=== PATIENT | female | born 1980 | race Caucasian/White ===

== ENCOUNTER 2018-12-23 22:30 | Emergency (ER) | payer BC, OTHER ==
[2018-12-23 22:48] VITALS: BP 123/70
[2018-12-24] MEDS ORDERED: Sulfamethoxazole/Trimethoprim 800-160 MG Tab PO ONE (00:55)
--- NOTE | 2018-12-24 01:05 | EDM.PDOC ---
ED HPI GENERAL MEDICAL PROBLEM - General Chief Complaint: Genitourinary Problem Stated Complaint: UTI Time Seen by Provider: 12/24/18 00:40 Source of Information: Reports: Patient, RN Notes Reviewed History Limitations: Reports: No Limitations - History of Present Illness INITIAL COMMENTS - FREE TEXT/NARRATIVE: The patient states that she developed dysuria and urinary frequency around 19: 00. She then developed gross hematuria around 21:00. No recent fever. No recent flank or lower back pain. No abdominal or pelvic pain. No recent nausea or vomiting. The patient states that her symptoms are similar to when she had a UTI previously - she states that she has only had one UTI in the past. The patient states that she took some ibuprofen and cranberry tablets prior to coming to the ED. The patient's LMP was 11/22/2018. She states that she recently had a miscarriage. The patient does not have a PCP. Her [facility] is Dr. Varghese Gordon. 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, , Spontaneous (x 4), Other (See Below) (G7 T3 L3) - Past Surgical History Female Surgical History: Reports: Section (x 1), Endometrial Ablation Dermatological Surgical History: Reports: Other (See Below) (Noncancerous tumor removed off left shoulder at 10 years old) Social & Family History - Family History Family Medical History: Noncontributory - Tobacco Use Smoking Status *Q: Never Smoker - Caffeine Use Caffeine Use: Reports: None - Alcohol Use Alcohol Use History: No - Recreational Drug Use Recreational Drug Use: No - Living Situation & Occupation Living situation: Reports: , with Spouse, with Family (3 kids) Occupation: Unemployed ED ROS GENERAL - Review of Systems Review Of Systems: ROS reveals no pertinent complaints other than HPI. ED EXAM, RENAL/ - Physical Exam Exam: See Below Exam Limited By: No Limitations General Appearance: Alert, WD/WN, No Apparent Distress Eye Exam: Bilateral Eye: EOMI, Normal Inspection Ears: Normal External Exam, Hearing Grossly Normal Nose: Normal Inspection Throat/Mouth: Normal Inspection, Normal Lips, Normal Voice, No Airway Compromise Head: Atraumatic, Normocephalic Neck: Normal Inspection, Full Range of Motion Respiratory/Chest: No Respiratory Distress, Lungs Clear, Normal Breath Sounds, No Accessory Muscle Use Cardiovascular: Normal Peripheral Pulses, Regular Rate, Rhythm, No Edema, No Gallop, No JVD, No Murmur, No Rub GI/Abdominal: Normal Bowel Sounds, Soft, Non-Tender (including suprapubically), No Organomegaly, No Distention, No Abnormal Bruit, No Mass (Female) Exam: Deferred Rectal (Female) Exam: Deferred Back Exam: Normal Inspection, Full Range of Motion. No: CVA Tenderness (L), CVA Tenderness (R) Extremities: Normal Inspection, Normal Range of Motion, No Pedal Edema, Normal Capillary Refill Neurological: Alert, Oriented, Normal Cognition, No Motor/Sensory Deficits Psychiatric: Normal Affect Skin Exam: Warm, Dry, Intact, Normal Color, No Rash Course - Vital Signs Last Recorded V/S: Last Vital Signs Temp 36.5 C 12/23/18 22:44 Pulse 85 12/23/18 22:44 Resp 18 12/23/18 22:44 BP 123/70 12/23/18 22:44 Pulse Ox 99 12/23/18 22:44 - Orders/Labs/Meds Labs: Laboratory Tests 12/23/18 Range/Units 22:53 Urine Color Red H (Yellow) Urine Appearance Turbid H (Clear) Urine pH 6.0 (5.0-8.0) Ur Specific [place] > or = 1.030 (1.005-1.030) Urine Protein 3+ H (Negative) Urine Glucose (UA) Negative (Negative) Urine Ketones 1+ H (Negative) Urine Occult Blood 3+ H (Negative) Urine Nitrite Positive H (Negative) Urine Bilirubin 2+ H (Negative) Urine Urobilinogen 1.0 (0.2-1.0) Ur Leukocyte Esterase 3+ H (Negative) Urine RBC Too numerous to cnt H (0-5) /hpf Urine WBC 5-10 H (0-5) /hpf Ur Epithelial Cells 0-5 (0-5) /hpf Urine Bacteria Few (FEW) /hpf Urine Mucus Not seen (FEW) /hpf Meds: Medications Discontinued Medications Generic Name Dose Route Start Last Admin Trade Name Abdullahi PRN Reason Stop Dose Admin Trimethoprim/Sulfamethoxazole 1 tab 12/24/18 00:55 12/24/18 01:03 Septra Ds PO 12/24/18 00:56 1 tab ONETIME ONE Administration - Re-Assessments/Exams Free Text/Narrative Re-Assessment/Exam: 12/24/18 00:56 The patient's urinalysis is consistent with a UTI. A urine culture has been ordered, and I will start the patient on Bactrim, and prescribe a five-day course. She may also take [id number] Azo. I will refer her to the clinic to follow-up on her urine culture results in 3 days. Departure - Departure Time of Disposition: 00:58 Disposition: Home, Self-Care 01 Condition: Good Clinical Impression: UTI (urinary tract infection) - Discharge Information *PRESCRIPTION DRUG MONITORING PROGRAM REVIEWED*: Not Applicable *COPY OF PRESCRIPTION DRUG MONITORING REPORT IN PATIENT [place]: Not Applicable Prescriptions: Sulfamethoxazole/Trimethoprim [Bactrim Ds Tablet] 1 tab PO Q12H #10 tablet Instructions: Urinary Tract Infection, Adult, [id number] Referrals: Shaun Lancaster PA [Physician Linoleum Printer] - Varghese Gordon MD [Resident] - Forms: ED Department Discharge Additional Instructions: You were seen in the emergency room for painful urination with urinary urgency and visible blood. Workup in the ER included a urinalysis, which returned consistent with a urinary tract infection. A sample of your urine has been sent for culture. You have been started on the antibiotic Bactrim DS. A prescription for Bactrim DS has been sent to the [place] pharmacy, located at [address] in [place]. Take one tablet of Bactrim DS every 12 hours, starting later this morning, 12/24/2018, as prescribed. Finish the entire prescription unless told otherwise by a doctor. In addition to Bactrim DS, you may also take [id number] Azo, a total of 6 doses - either 3 doses a day for 2 days, or 2 doses a day for 3 days. Azo will turn your urine orange. Stay adequately hydrated. It does not really matter what type of fluid you drink. Follow-up with KALYN Soni, or one of the other providers in the clinic on Sunday morning, 12/27/2018, to check on the urine culture results, to make sure that you are on the correct antibiotic. If any other problems, please do not hesitate to return to the ER.
== END 2018-12-24 01:10 | disposition home or self-care (01) ==
LOC: JD.ED 22:30
DX: N39.0 Urinary tract infection, site not specified (principal); Z79.82 Long term (current) use of aspirin; Z98.890 Other specified postprocedural states
CPT/HCPCS: 81001; 87086; 87088; 87186; 99283; A9270

== ENCOUNTER 2019-07-05 08:43 | Day surgery (SDC) | payer BC, OTHER ==
[2019-07-05 08:56] VITALS: PULSE 72
[2019-07-05] MEDS ORDERED: Sodium Chloride 0.9% 1,000 ML IV SCH (09:00)
--- NOTE | 2019-07-05 09:06 | EDM.PDOC ---
ED HPI GENERAL MEDICAL PROBLEM - General Chief Complaint: MINK RANCHER Problem Stated Complaint: VAGINAL BLEEDING AFTER MISCARRIAGE IN MAY Time Seen by Provider: 07/05/19 08:56 Source of Information: Reports: Patient History Limitations: Reports: No Limitations - History of Present Illness INITIAL COMMENTS - FREE TEXT/NARRATIVE: She was identified to have suffered a demise at around 20 weeks gestation. On June 13 she was brought into the hospital and induced labor with delivery of a 20 week fetus. Was felt at that time that all of the proximal conception were also delivered. An ultrasound was done the same day of delivery and suggested no obvious retained products of conception. Since that time however the patient has been bleeding spotting per vagina and passed a multitude of fairly large clots particular this morning. Associated lower abdominal cramping pain. She did do a home test which was negative. She is mildly orthostatic in the ED. She is also mildly pallid. Patient feels by temperature that she ovulated about a week ago. Likely this represents her normal menstrual cycle as the clots are fairly large for a menstrual cycle. Patient is 8 para 3. Onset: Gradual (Has been spotting and passing clots per vagina off and on since June 13.) Duration: Day(s):, Intermittent Location: Reports: Other (Passing clots and perhaps some tissue per vagina this morning. 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: Other (see below) - Related Data Allergies Allergy/AdvReac Type Severity Reaction Status Date / Time No Known Allergies Allergy Verified 07/05/19 08:56 Home Meds: Home Meds Vit Calc,Iron,Folic [ Vitamins] 1 tab PO DAILY 05/21/16 [ History] L.acidoph,Paracasei, B.lactis [Probiotic] 1 cap PO DAILY 07/05/19 [History] Ubidecarenone [Co Q-10] 10 mg PO DAILY 07/05/19 [History] Past Medical History MINK RANCHER History: Reports: Endometriosis, , Spontaneous (x 4), Other (See Below) (G7 T3 L3) : 8 Para: 3 (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 Denies: Fever, Chills HEENT: Reports: No Symptoms Respiratory: Reports: No Symptoms Cardiovascular: Reports: No Symptoms Endocrine: Reports: No Symptoms GI/Abdominal: Reports: No Symptoms : Reports: Other (Clotting and bleeding heavily at times with clots since June 13 when she delivered a 20 week fetus.) Musculoskeletal: Reports: No Symptoms Skin: Reports: No Symptoms Neurological: Reports: No Symptoms Psychiatric: Reports: No Symptoms Hematologic/Lymphatic: Reports: Anemia Immunologic: Reports: No Symptoms ED EXAM - Physical Exam Exam: See Below Exam Limited By: No Limitations General Appearance: Alert, WD/WN, No Apparent Distress, Other (Vital signs show temperature 36.3. Pulse is 72 and sinus respiratory 16 BP is 107/79 pulse ox 100 %) Eye Exam: Bilateral Eye: Normal Inspection, PERRL (Mild left pleural pallor.) Throat/Mouth: Normal Inspection, Normal Lips, Normal Teeth, Normal Oropharynx Head: Atraumatic, Normocephalic Neck: Normal Inspection, Supple, Non-Tender, Full Range of Motion. No: Lymphadenopathy (L), Lymphadenopathy (R) Respiratory/Chest: No Respiratory Distress, Lungs Clear, Normal Breath Sounds, No Accessory Muscle Use Cardiovascular: Normal Peripheral Pulses, Regular Rate, Rhythm, No Edema, No Gallop, No Murmur GI/Abdominal Exam: Normal Bowel Sounds, Soft, Non-Tender, No Organomegaly, No Abnormal Bruit, No Mass, Pelvis Stable, Other ( scar Pfannenstiel) (Female) Exam: Vaginal Bleeding, Other (Uterus is normal in size i.e. 4 weeks in size. Cervix is closed. Some masses appreciated.Blood on gloved fingers.). No: Normal External Exam, Adnexal Mass (L), Adnexal Mass (R), Cervical Dilatation, Products of Conception, Tissue Present in Cervix/Vagina, Uterine Tenderness Back Exam: Normal Inspection, Full Range of Motion. No: CVA Tenderness (L), CVA Tenderness (R) Extremities: Normal Inspection, Normal Range of Motion, Non-Tender, No Pedal Edema Neurological: Alert, Oriented, CN II-XII Intact, Normal Cognition, Normal Gait Psychiatric: Normal Affect, Normal Mood Skin Exam: Warm, Dry, Intact, Pallor (Mildly pallid.) Course - Vital Signs Last Recorded V/S: Last Vital Signs Temp 36.3 C 07/05/19 08:52 Pulse 72 07/05/19 08:52 Resp 16 07/05/19 08:52 BP 107/79 07/05/19 08:52 Pulse Ox 100 07/05/19 08:52 Orthostatic Blood Pressure [ 124/88 Standing] Orthostatic Blood Pressure [ 129/95 Sitting] Orthostatic Blood Pressure [ 112/64 Supine] - Orders/Labs/Meds Orders: Active Orders 24 hr Category Date Time Status Orthostatic Vital Signs [RC] ASDIRECTED Care 07/05/19 08:55 Active PATIENT RETYPE [BBK] Routine Lab 07/05/19 09:51 Ordered Oxytocin/Lactated Ringers [Pitocin in LR 20 Units/1,000 Med 07/05/19 11:00 Active ML] 20 unit in 1,000 ml IV TITRATE Medication Orders Oxytocin/Lactated Ringer's (Pitocin In Lr 20 Units/1,000 Ml) 20 unit in 1,000 mls @ 125 mls/hr IV TITRATE DALE; Protocol Last Admin: 07/05/19 11:09 Dose: 125 mls/hr Labs: Laboratory Tests 07/05/19 07/05/19 07/05/19 Range/Units 09:10 09:20 09:20 WBC 7.20 (3.98-10.04) K/mm3 RBC 4.80 (3.98-5.22) M/mm3 Hgb 13.5 (11.2-15.7) gm/dl Hct 40.3 (34.1-44.9) % MCV 84.0 (79.4-94.8) fl MCH 28.1 (25.6-32.2) pg MCHC 33.5 (32.2-35.5) g/dl RDW Std Deviation 41.1 (36.4-46.3) fL Plt Count 323 (182-369) K/mm3 MPV 8.9 L (9.4-12.3) fl Neut % (Auto) 69.6 (34.0-71.1) % Lymph % (Auto) 21.9 (19.3-51.7) % [place] % (Auto) 7.6 (4.7-12.5) % Eos % (Auto) 0.7 (0.7-5.8) Baso % (Auto) 0.1 (0.1-1.2) % Neut # (Auto) 5.00 (1.56-6.13) K/mm3 Lymph # (Auto) 1.58 (1.18-3.74) K/mm3 [place] # (Auto) 0.55 H (0.24-0.36) K/mm3 Eos # (Auto) 0.05 (0.04-0.36) K/mm3 Baso # (Auto) 0.01 (0.01-0.08) K/mm3 PT (9.7-12.0) SECONDS INR APTT (22-31) SECONDS Sodium 142 (136-145) mEq/L Potassium 3.9 (3.5-5.1) mEq/L Chloride 105 (98-107) mEq/L Carbon Dioxide 27 (21-32) mEq/L Anion Gap 13.9 (5-15) BUN 9 (7-18) mg/dL Creatinine 0.8 (0.55-1.02) mg/dL Est Cr Clr Drug Dosing 93.63 mL/min Estimated GFR (MDRD) > 60 (>60) mL/min BUN/Creatinine Ratio 11.3 L (14-18) Glucose 94 (74-106) mg/dL Calcium 8.9 (8.5-10.1) mg/dL Total Bilirubin 0.6 (0.2-1.0) mg/dL AST 17 (15-37) U/L ALT 24 (14-59) U/L Alkaline Phosphatase 57 (46-116) U/L Total Protein 7.5 (6.4-8.2) g/dl Albumin 4.0 (3.4-5.0) g/dl Globulin 3.5 gm/dL Albumin/Globulin Ratio 1.1 (1-2) HCG, Qual (NEGATIVE) HCG, Quant mIU/mL Urine Color Yellow (Yellow) Urine Appearance Clear (Clear) Urine pH 7.0 (5.0-8.0) Ur Specific [place] 1.020 (1.005-1.030) Urine Protein Negative (Negative) Urine Glucose (UA) Negative (Negative) Urine Ketones Negative (Negative) Urine Occult Blood 3+ H (Negative) Urine Nitrite Negative (Negative) Urine Bilirubin Negative (Negative) Urine Urobilinogen 0.2 (0.2-1.0) Ur Leukocyte Esterase Negative (Negative) Urine RBC 30-40 H (0-5) /hpf Urine WBC 0-5 (0-5) /hpf Ur Squamous Epith Cells 5-10 H (0-5) /hpf Urine Bacteria Few (FEW) /hpf Urine Mucus Few (FEW) /hpf Blood Type Gel Antibody Screen 07/05/19 07/05/19 07/05/19 Range/Units 09:20 09:20 09:20 WBC (3.98-10.04) K/mm3 RBC (3.98-5.22) M/mm3 Hgb (11.2-15.7) gm/dl Hct (34.1-44.9) % MCV (79.4-94.8) fl MCH (25.6-32.2) pg MCHC (32.2-35.5) g/dl RDW Std Deviation (36.4-46.3) fL Plt Count (182-369) K/mm3 MPV (9.4-12.3) fl Neut % (Auto) (34.0-71.1) % Lymph % (Auto) (19.3-51.7) % [place] % (Auto) (4.7-12.5) % Eos % (Auto) (0.7-5.8) Baso % (Auto) (0.1-1.2) % Neut # (Auto) (1.56-6.13) K/mm3 Lymph # (Auto) (1.18-3.74) K/mm3 [place] # (Auto) (0.24-0.36) K/mm3 Eos # (Auto) (0.04-0.36) K/mm3 Baso # (Auto) (0.01-0.08) K/mm3 PT 10.7 (9.7-12.0) SECONDS INR 0.98 APTT 29 (22-31) SECONDS Sodium (136-145) mEq/L Potassium (3.5-5.1) mEq/L Chloride (98-107) mEq/L Carbon Dioxide (21-32) mEq/L Anion Gap (5-15) BUN (7-18) mg/dL Creatinine (0.55-1.02) mg/dL Est Cr Clr Drug Dosing mL/min Estimated GFR (MDRD) (>60) mL/min BUN/Creatinine Ratio (14-18) Glucose (74-106) mg/dL Calcium (8.5-10.1) mg/dL Total Bilirubin (0.2-1.0) mg/dL AST (15-37) U/L ALT (14-59) U/L Alkaline Phosphatase (46-116) U/L Total Protein (6.4-8.2) g/dl Albumin (3.4-5.0) g/dl Globulin gm/dL Albumin/Globulin Ratio (1-2) HCG, Qual Negative (NEGATIVE) HCG, Quant mIU/mL Urine Color (Yellow) Urine Appearance (Clear) Urine pH (5.0-8.0) Ur Specific [place] (1.005-1.030) Urine Protein (Negative) Urine Glucose (UA) (Negative) Urine Ketones (Negative) Urine Occult Blood (Negative) Urine Nitrite (Negative) Urine Bilirubin (Negative) Urine Urobilinogen (0.2-1.0) Ur Leukocyte Esterase (Negative) Urine RBC (0-5) /hpf Urine WBC (0-5) /hpf Ur Squamous Epith Cells (0-5) /hpf Urine Bacteria (FEW) /hpf Urine Mucus (FEW) /hpf Blood Type A POSITIVE Gel Antibody Screen Negative 07/05/19 Range/Units 09:20 WBC (3.98-10.04) K/mm3 RBC (3.98-5.22) M/mm3 Hgb (11.2-15.7) gm/dl Hct (34.1-44.9) % MCV (79.4-94.8) fl MCH (25.6-32.2) pg MCHC (32.2-35.5) g/dl RDW Std Deviation (36.4-46.3) fL Plt Count (182-369) K/mm3 MPV (9.4-12.3) fl Neut % (Auto) (34.0-71.1) % Lymph % (Auto) (19.3-51.7) % [place] % (Auto) (4.7-12.5) % Eos % (Auto) (0.7-5.8) Baso % (Auto) (0.1-1.2) % Neut # (Auto) (1.56-6.13) K/mm3 Lymph # (Auto) (1.18-3.74) K/mm3 [place] # (Auto) (0.24-0.36) K/mm3 Eos # (Auto) (0.04-0.36) K/mm3 Baso # (Auto) (0.01-0.08) K/mm3 PT (9.7-12.0) SECONDS INR APTT (22-31) SECONDS Sodium (136-145) mEq/L Potassium (3.5-5.1) mEq/L Chloride (98-107) mEq/L Carbon Dioxide (21-32) mEq/L Anion Gap (5-15) BUN (7-18) mg/dL Creatinine (0.55-1.02) mg/dL Est Cr Clr Drug Dosing mL/min Estimated GFR (MDRD) (>60) mL/min BUN/Creatinine Ratio (14-18) Glucose (74-106) mg/dL Calcium (8.5-10.1) mg/dL Total Bilirubin (0.2-1.0) mg/dL AST (15-37) U/L ALT (14-59) U/L Alkaline Phosphatase (46-116) U/L Total Protein (6.4-8.2) g/dl Albumin (3.4-5.0) g/dl Globulin gm/dL Albumin/Globulin Ratio (1-2) HCG, Qual (NEGATIVE) HCG, Quant 4.0 mIU/mL Urine Color (Yellow) Urine Appearance (Clear) Urine pH (5.0-8.0) Ur Specific [place] (1.005-1.030) Urine Protein (Negative) Urine Glucose (UA) (Negative) Urine Ketones (Negative) Urine Occult Blood (Negative) Urine Nitrite (Negative) Urine Bilirubin (Negative) Urine Urobilinogen (0.2-1.0) Ur Leukocyte Esterase (Negative) Urine RBC (0-5) /hpf Urine WBC (0-5) /hpf Ur Squamous Epith Cells (0-5) /hpf Urine Bacteria (FEW) /hpf Urine Mucus (FEW) /hpf Blood Type Gel Antibody Screen Meds: Medications Generic Name Dose Route Start Last Admin Trade Name Freq PRN Reason Stop Dose Admin Oxytocin/Lactated Ringer's 20 unit in 1,000 mls @ 125 mls/hr 07/05/19 11:00 07/05/19 11:09 Pitocin In Lr 20 Units/1,000 Ml IV 125 mls/hr TITRATE DALE Administration Protocol Discontinued Medications Generic Name Dose Route Start Last Admin Trade Name Freq PRN Reason Stop Dose Admin Sodium Chloride 1,000 mls @ 150 mls/hr 07/05/19 09:00 07/05/19 09:27 Normal Saline IV 150 mls/hr ASDIRECTED DALE Administration Lactated Ringer's 1,000 mls @ 999 mls/hr 07/05/19 11:00 Ringers, Lactated IV .BOLUS DALE Metoclopramide HCl 7.5 mg 07/05/19 11:46 07/05/19 11:52 Reglan IVPUSH 07/05/19 11:47 7.5 mg ONETIME ONE Administration Misoprostol 800 mcg 07/05/19 10:52 07/05/19 11:07 Cytotec PO 07/05/19 10:53 800 mcg ONETIME ONE Administration - Radiology Interpretation Free Text/Narrative:: 39-year-old female presents to the ED with passage of large clots per vagina this morning. She underwent induction of a 20 week which had failed on June 13. She was discharged the same date. An ultrasound was done on that day and did not show any obvious retained products of conception. Since discharge she's had intermittent spotting and bleeding per vagina with intermittent passage of fairly large clots particularly again this morning. Very minimal associated menstrual cramps. She feels that by temperature she ovulated about a week ago. She has pictures of the clots passed this morning and they are fairly large and numerous. Exam reveals a normal-size uterus I 4 weeks in size for a multipara. Cervix is closed with no ortiz of conception evident. Plan routine labs with a quantitative beta-hCG. Coags to be done as well since she states she bleeds very easily. Transvaginal ultrasound will be done. IV will be normal saline at 150 mils per hour - Re-Assessments/Exams Free Text/Narrative Re-Assessment/Exam: 07/05/19 10:00 Labs reveal a normal white count at 7.20. Auto differential shows 69% neutrophils. Hemoglobin is 13.5 with hematocrit of 40.3. Platelet counts 323,000. PT is 10.7 with an INR 0.98. PTT is 29. Sodium is 142 with potassium of 3.9. Chloride is 105 with a bicarbonate of 27. Anion gap is 13.9. BUN is 9 with a creatinine of 0.8. EGFR remains greater than 60. Glucose is 94th a calcium of 8.9. Liver function is normal. Total protein 7.5 with an albumin fraction 4.0. Urinalysis shows it to be clear and yellow with 3+ occult blood in 30-40 RBCs per high-power field presumably from contamination from vaginal bleeding. 5-10 squamous epithelial cells no white cells visualized 07/05/19 10:20 test is negative and quantitative hCG is 4.0. 07/05/19 10:40 6 and continues to have active bleeding per vagina. She does past 2 fairly large clots and then a large softball sized clot per vagina. Transvaginal ultrasound reveals to a distended endometrial cavity containing material measuring approximately 3.1 x 2.6 x 2.2 cm. This is most likely due to retained products of conception. Interface between the posterior aspect of this finding the myometrium is poorly identified. Hopefully this is technical and does not represent a developing placental accreta. Normal limits with follicles. Small amount of fluid is seen within the pelvis believed to be coincidental. Uterus measures 9.7 cm in length. Height is 5.0 cm in transverse width is 6 cm. I will therefore call educational audiologist MINK RANCHER which is Dr. Alfaro. Patient usually has received care from Dr. Varghese Gordon in [place]. 07/05/19 11:03 I have discussed the case with Dr. Barrie Alfaro--educational audiologist MINK RANCHER. He indicates that he feels that the mass appreciated in the intrauterine cavity is most likely blood clot since the quantitative beta-hCG is low at 4. He suggest a trial of misoprostol 800 g in total. She was received 2 200 g tablets into each side of her buccal mucosa for 15 minutes and then swallow the tablets. She' ll also be started on a Pitocin drip with 20 units in 1 L of Ringer's lactate to run at 125 mils per hour. A consent has been obtained for D&C with suction curettage if so needed to stop the vaginal bleeding. 07/05/19 11:47 patient has passed a couple more blood clots per vagina no tissue. No certain feel nauseated from likely the Pitocin drip. Will give her Reglan 7.5 mg IV. 07/05/19 12:27 Patient hasn't passed any blood clots per vagina in the last half hour. I'm going to repeat her transvaginal ultrasound to see if the soft tissue mass in the endometrial cavity has been passed. Dr. Alfaro will also pass by to check on the patient so we can make a decision as to need for possible D& C if she has not passed the tissue from the endometrial cavity 07/05/19 13:03 patient reports no bleeding per vagina when she's been up to the bathroom over the last 40 minutes. Transvaginal Ultrasound is being done at this time . 07/05/19 13:20: Repeat transvaginal ultrasound reveals that the previous appreciated mass in the endometrial cavity is still present. Dr. Alfaro will therefore be coming by to see the patient and look at the ultrasound and determine what needs to be done in terms of D&C or hysteroscopy. 07/05/19 14:10: Doctor Alfaro is now here and has assessed the patient and decision made to take her to the OR for D&C. Departure - Departure Time of Disposition: 14:20 Disposition: DC/Tfer to [facility] Access [facility] Condition: Fair Clinical Impression: hemorrhage, delayed (> 24 hrs), condition - Discharge Information *PRESCRIPTION DRUG MONITORING PROGRAM REVIEWED*: Not Applicable *COPY OF PRESCRIPTION DRUG MONITORING REPORT IN PATIENT LUCRETIA: Not Applicable Referrals: Varghese Gordon MD [Primary Care Provider] - Forms: ED Department Discharge Additional Instructions: Patient be taken to the operating room by Dr. Alfaro educational audiologist MINK RANCHER with a view to D&C to remove the persistent endometrial mass that we can identify on ultrasound. It is felt this is most likely hospital sales representative a large blood clot because her quantitative hCG is normal. Less likely to be products of conception. Sepsis Event Note - Evaluation Sepsis Screening Result: No Definite Risk - Focused Exam Vital Signs: Vital Signs Temp Pulse Resp BP Pulse Ox 07/05/19 08:52 36.3 C 72 16 107/79 100 Date Exam was Performed: 07/05/19 Time Exam was Performed: 14:18 - My Orders Last 24 Hours: My Active Orders 07/05/19 08:55 Orthostatic Vital Signs [RC] ASDIRECTED 07/05/19 09:51 PATIENT RETYPE [BBK] Routine 07/05/19 11:00 Oxytocin/Lactated Ringers [Pitocin in LR 20 Units/1,000 ML] 20 unit in 1,000 ml IV TITRATE - Assessment/Plan Last 24 Hours: My Active Orders 07/05/19 08:55 Orthostatic Vital Signs [RC] ASDIRECTED 07/05/19 09:51 PATIENT RETYPE [BBK] Routine 07/05/19 11:00 Oxytocin/Lactated Ringers [Pitocin in LR 20 Units/1,000 ML] 20 unit in 1,000 ml IV TITRATE
--- NOTE | 2019-07-05 10:33 | US ---
Obstetrical ultrasound: Multiple real-time images were obtained transvaginally. Comparison: No additional study for current is available. Distended endometrial cavity is seen containing material measuring approximately 3.1 x 2.6 x 2.2 cm. This is most likely due to retained products of conception. Interface between the posterior aspect of this finding and myometrium is poorly seen. Hopefully this is technical and does not represent a developing placenta accreta. Ovaries appear within normal limits with follicles. Small amount of fluid is seen within the pelvis believed to be incidental. Measurements: Uterus: Length 9.7 cm, AP height 5.0 cm,transverse width 6.0 cm Right ovary: 3.6 x 2.0 x 1.8 cm Left ovary: 2.9 x 2.7 x 2.6 cm Impression: 1. Distended endometrial cavity containing material as noted above. Findings most likely represent retained products of conception. 2. No additional abnormality is seen on pelvic ultrasound study. Diagnostic code #3 This report was dictated in [place] Standard Time
[2019-07-05] MEDS ORDERED: Misoprostol 100 MCG Tab PO ONE (10:52)
[2019-07-05] MEDS ORDERED: Oxytocin/Lactated Ringers 20 UNIT/1,000 ML BAG IV SCH (11:00)
[2019-07-05] MEDS ORDERED: Lactated Ringers 1,000 ML IV SCH (11:00)
[2019-07-05] MEDS ORDERED: Metoclopramide 10 MG/2 ML SDV IVPUSH ONE (11:46)
--- NOTE | 2019-07-05 13:18 | US ---
Limited pelvic ultrasound: Multiple real-time images were obtained transvaginally. Comparison: Previous pelvic ultrasound study performed earlier on the same day. Findings: Continuing soft tissue findings are seen within the endometrial cavity. No change from previous study is seen. Impression: 1. Unchanged appearance of previously noted soft tissue findings within the endometrial cavity. Diagnostic code #3 This report was dictated in [place] Standard Time
--- NOTE | 2019-07-05 14:22 | PCM.HP.2 ---
H&P History of Present Illness - General Date of Service: 07/05/19 Admit Problem/Dx: Heavy vaginal bleeding post intrauterine demise at approximately 20 weeks ' gestation delivered [place]. Source of Information: Patient History Limitations: Reports: No Limitations - History of Present Illness Initial Comments - Free Text/Narative: 39-year-old (intrauterine demise delivered at 20 weeks gestation in [place] tight cord around the extremities according to patient's history.) patient presented to emergency room and [facility] with history of heavy vaginal bleeding and clotting. Lower abdominal cramping. Blood type is A+ . Drains test was negative. She was identified to have suffered a demise at around 20 weeks gestation. On June 13 she was brought into the hospital in [facility] and induced labor with delivery of a 20 week fetus. Was felt at that time that all of the products of conception were also delivered. An ultrasound was done the same day of delivery and suggested no obvious retained products of conception. Since that time however the patient has been bleeding spotting per vagina and passed a multitude of fairly large clots particular this morning. Associated lower abdominal cramping pain. She did do a home test which was negative. She is mildly orthostatic in the ED. She is also mildly pallid. Patient feels by temperature that she ovulated about a week ago. Likely this represents her normal menstrual cycle as the clots are fairly large for a menstrual cycle. Patient is 8 para 3. Patient was treated with Cytotec 800 g by mouth and passed some additional clots and bleeding has decreased. Ultrasound obtained prior to the Cytotec revealed distended endometrial cavity is seen containing material measuring approximately 3.1 x 2.6 x 2.2 cm most likely due to retained products of conception. Interface between the posterior aspect of the finding and myometrium is poorly seen. Hopefully this is technical and does not represent a developing placenta accreta. Ultrasound obtained after the Cytotec and passage of several large blood clots. Findings continued soft tissue findings are seen within the endometrial cavity no change from previous study is seen. Hemoglobin hematocrit at time of admission to [facility] on 06/12/1915.3/ 43.9. Hemoglobin hematocrit today when seen in the emergency room 13.5 and 40.3. Qualitative test negative and quantitative test for in ( negative) patient has a history of "easy bleeding" but no specific diagnosis related to same. Will plan to take patient to the operating room for suction D&C. Symptom Onset Date: 07/05/19 Duration of Symptoms: Reports: Hour(s): Location: Reports: Pelvis (Pelvic cramping and vaginal bleeding.) Improves with: Reports: None Worsens with: Reports: None Associated Symptoms: Reports: Weakness (And some dizziness) - Related Data Allergies/Adverse Reactions: Allergies Allergy/AdvReac Type Severity Reaction Status Date / Time No Known Allergies Allergy Verified 07/05/19 08:56 Home Medications: Home Meds Vit Calc,Iron,Folic [ Vitamins] 1 tab PO DAILY 05/21/16 [ History] L.acidoph,Paracasei, B.lactis [Probiotic] 1 cap PO DAILY 07/05/19 [History] Ubidecarenone [Co Q-10] 10 mg PO DAILY 07/05/19 [History] Past Medical History [employer] History: Reports: Endometriosis, , Spontaneous (x 4), Other (See Below) (G7 T3 L3) Other OB/BYN History: 2 Para 4 - Past Surgical History Female Surgical History: Reports: Section (x 1), Endometrial Ablation Dermatological Surgical History: Reports: Other (See Below) (Noncancerous tumor removed off left shoulder at 10 years old) Social & Family History - Family History Family Medical History: Noncontributory - Tobacco Use Smoking Status *Q: Never Smoker - Caffeine Use Caffeine Use: Reports: None - Living Situation & Occupation Living situation: Reports: , with Spouse, with Family (3 kids) Occupation: Unemployed H&P Review of Systems - Review of Systems: Review Of Systems: See Below General: Reports: Weakness (Feeling fine upon sitting.) HEENT: Reports: No Symptoms Pulmonary: Reports: No Symptoms Cardiovascular: Reports: No Symptoms Gastrointestinal: Reports: No Symptoms Genitourinary: Reports: No Symptoms Musculoskeletal: Reports: No Symptoms Skin: Reports: No Symptoms Psychiatric: Reports: No Symptoms Neurological: Reports: No Symptoms Hematologic/Lymphatic: Reports: No Symptoms Immunologic: Reports: No Symptoms Exam - Exam Exam: See Below - Vital Signs Vital Signs: Last Vital Signs Temp 97.3 F 07/05/19 08:52 Pulse 72 07/05/19 08:52 Resp 16 07/05/19 08:52 BP 107/79 01/11/20 08:52 Pulse Ox 100 07/05/19 08:52 Orthostatic Blood Pressure [ 124/88 Standing] Orthostatic Blood Pressure [ 129/95 Sitting] Orthostatic Blood Pressure [ 112/64 Supine] Weight: 138 lb - Exam General: Alert, Oriented, 4 HEENT: Conjunctiva Clear, Mucosa Moist & [place] Neck: Supple, Trachea Midline Lungs: Clear to Auscultation, Normal Respiratory Effort Cardiovascular: Regular Rate, Regular Rhythm GI/Abdominal Exam: Normal Bowel Sounds, Soft, Non-Tender (Female) Exam: Normal External Exam, Enlarged Uterus (Approximately 12 weeks size.) Extremities: Normal Inspection, Non-Tender, No Pedal Edema, Normal Capillary Refill Skin: Warm, Dry, Intact Neuro Extensive - Mental Status: Alert, Oriented x3, Normal Mood/Affect, Normal Cognition Psychiatric: Alert, Normal Affect, Normal Mood - Patient Data Lab Results Last 24 hrs: Laboratory Results - last 24 hr 07/05/19 07/05/19 07/05/19 Range/Units 09:10 09:20 09:20 WBC 7.20 (3.98-10.04) K/mm3 RBC 4.80 (3.98-5.22) M/mm3 Hgb 13.5 (11.2-15.7) gm/dl Hct 40.3 (34.1-44.9) % MCV 84.0 (79.4-94.8) fl MCH 28.1 (25.6-32.2) pg MCHC 33.5 (32.2-35.5) g/dl RDW Std Deviation 41.1 (36.4-46.3) fL Plt Count 323 (182-369) K/mm3 MPV 8.9 L (9.4-12.3) fl Neut % (Auto) 69.6 (34.0-71.1) % Lymph % (Auto) 21.9 (19.3-51.7) % [place] % (Auto) 7.6 (4.7-12.5) % Eos % (Auto) 0.7 (0.7-5.8) Baso % (Auto) 0.1 (0.1-1.2) % Neut # (Auto) 5.00 (1.56-6.13) K/mm3 Lymph # (Auto) 1.58 (1.18-3.74) K/mm3 [place] # (Auto) 0.55 H (0.24-0.36) K/mm3 Eos # (Auto) 0.05 (0.04-0.36) K/mm3 Baso # (Auto) 0.01 (0.01-0.08) K/mm3 PT (9.7-12.0) SECONDS INR APTT (22-31) SECONDS Sodium 142 (136-145) mEq/L Potassium 3.9 (3.5-5.1) mEq/L Chloride 105 (98-107) mEq/L Carbon Dioxide 27 (21-32) mEq/L Anion Gap 13.9 (5-15) BUN 9 (7-18) mg/dL Creatinine 0.8 (0.55-1.02) mg/dL Est Cr Clr Drug Dosing 93.63 mL/min Estimated GFR (MDRD) > 60 (>60) mL/min BUN/Creatinine Ratio 11.3 L (14-18) Glucose 94 (74-106) mg/dL Calcium 8.9 (8.5-10.1) mg/dL Total Bilirubin 0.6 (0.2-1.0) mg/dL AST 17 (15-37) U/L ALT 24 (14-59) U/L Alkaline Phosphatase 57 (46-116) U/L Total Protein 7.5 (6.4-8.2) g/dl Albumin 4.0 (3.4-5.0) g/dl Globulin 3.5 gm/dL Albumin/Globulin Ratio 1.1 (1-2) HCG, Qual (NEGATIVE) HCG, Quant mIU/mL Urine Color Yellow (Yellow) Urine Appearance Clear (Clear) Urine pH 7.0 (5.0-8.0) Ur Specific [place] 1.020 (1.005-1.030) Urine Protein Negative (Negative) Urine Glucose (UA) Negative (Negative) Urine Ketones Negative (Negative) Urine Occult Blood 3+ H (Negative) Urine Nitrite Negative (Negative) Urine Bilirubin Negative (Negative) Urine Urobilinogen 0.2 (0.2-1.0) Ur Leukocyte Esterase Negative (Negative) Urine RBC 30-40 H (0-5) /hpf Urine WBC 0-5 (0-5) /hpf Ur Squamous Epith Cells 5-10 H (0-5) /hpf Urine Bacteria Few (FEW) /hpf Urine Mucus Few (FEW) /hpf Blood Type Gel Antibody Screen 07/05/19 07/05/19 07/05/19 Range/Units 09:20 09:20 09:20 WBC (3.98-10.04) K/mm3 RBC (3.98-5.22) M/mm3 Hgb (11.2-15.7) gm/dl Hct (34.1-44.9) % MCV (79.4-94.8) fl MCH (25.6-32.2) pg MCHC (32.2-35.5) g/dl RDW Std Deviation (36.4-46.3) fL Plt Count (182-369) K/mm3 MPV (9.4-12.3) fl Neut % (Auto) (34.0-71.1) % Lymph % (Auto) (19.3-51.7) % [place] % (Auto) (4.7-12.5) % Eos % (Auto) (0.7-5.8) Baso % (Auto) (0.1-1.2) % Neut # (Auto) (1.56-6.13) K/mm3 Lymph # (Auto) (1.18-3.74) K/mm3 [place] # (Auto) (0.24-0.36) K/mm3 Eos # (Auto) (0.04-0.36) K/mm3 Baso # (Auto) (0.01-0.08) K/mm3 PT 10.7 (9.7-12.0) SECONDS INR 0.98 APTT 29 (22-31) SECONDS Sodium (136-145) mEq/L Potassium (3.5-5.1) mEq/L Chloride (98-107) mEq/L Carbon Dioxide (21-32) mEq/L Anion Gap (5-15) BUN (7-18) mg/dL Creatinine (0.55-1.02) mg/dL Est Cr Clr Drug Dosing mL/min Estimated GFR (MDRD) (>60) mL/min BUN/Creatinine Ratio (14-18) Glucose (74-106) mg/dL Calcium (8.5-10.1) mg/dL Total Bilirubin (0.2-1.0) mg/dL AST (15-37) U/L ALT (14-59) U/L Alkaline Phosphatase (46-116) U/L Total Protein (6.4-8.2) g/dl Albumin (3.4-5.0) g/dl Globulin gm/dL Albumin/Globulin Ratio (1-2) HCG, Qual Negative (NEGATIVE) HCG, Quant mIU/mL Urine Color (Yellow) Urine Appearance (Clear) Urine pH (5.0-8.0) Ur Specific [place] (1.005-1.030) Urine Protein (Negative) Urine Glucose (UA) (Negative) Urine Ketones (Negative) Urine Occult Blood (Negative) Urine Nitrite (Negative) Urine Bilirubin (Negative) Urine Urobilinogen (0.2-1.0) Ur Leukocyte Esterase (Negative) Urine RBC (0-5) /hpf Urine WBC (0-5) /hpf Ur Squamous Epith Cells (0-5) /hpf Urine Bacteria (FEW) /hpf Urine Mucus (FEW) /hpf Blood Type A POSITIVE Gel Antibody Screen Negative 07/05/19 Range/Units 09:20 WBC (3.98-10.04) K/mm3 RBC (3.98-5.22) M/mm3 Hgb (11.2-15.7) gm/dl Hct (34.1-44.9) % MCV (79.4-94.8) fl MCH (25.6-32.2) pg MCHC (32.2-35.5) g/dl RDW Std Deviation (36.4-46.3) fL Plt Count (182-369) K/mm3 MPV (9.4-12.3) fl Neut % (Auto) (34.0-71.1) % Lymph % (Auto) (19.3-51.7) % [place] % (Auto) (4.7-12.5) % Eos % (Auto) (0.7-5.8) Baso % (Auto) (0.1-1.2) % Neut # (Auto) (1.56-6.13) K/mm3 Lymph # (Auto) (1.18-3.74) K/mm3 [place] # (Auto) (0.24-0.36) K/mm3 Eos # (Auto) (0.04-0.36) K/mm3 Baso # (Auto) (0.01-0.08) K/mm3 PT (9.7-12.0) SECONDS INR APTT (22-31) SECONDS Sodium (136-145) mEq/L Potassium (3.5-5.1) mEq/L Chloride (98-107) mEq/L Carbon Dioxide (21-32) mEq/L Anion Gap (5-15) BUN (7-18) mg/dL Creatinine (0.55-1.02) mg/dL Est Cr Clr Drug Dosing mL/min Estimated GFR (MDRD) (>60) mL/min BUN/Creatinine Ratio (14-18) Glucose (74-106) mg/dL Calcium (8.5-10.1) mg/dL Total Bilirubin (0.2-1.0) mg/dL AST (15-37) U/L ALT (14-59) U/L Alkaline Phosphatase (46-116) U/L Total Protein (6.4-8.2) g/dl Albumin (3.4-5.0) g/dl Globulin gm/dL Albumin/Globulin Ratio (1-2) HCG, Qual (NEGATIVE) HCG, Quant 4.0 mIU/mL Urine Color (Yellow) Urine Appearance (Clear) Urine pH (5.0-8.0) Ur Specific [place] (1.005-1.030) Urine Protein (Negative) Urine Glucose (UA) (Negative) Urine Ketones (Negative) Urine Occult Blood (Negative) Urine Nitrite (Negative) Urine Bilirubin (Negative) Urine Urobilinogen (0.2-1.0) Ur Leukocyte Esterase (Negative) Urine RBC (0-5) /hpf Urine WBC (0-5) /hpf Ur Squamous Epith Cells (0-5) /hpf Urine Bacteria (FEW) /hpf Urine Mucus (FEW) /hpf Blood Type Gel Antibody Screen Result Diagrams: 07/05/19 09:20 07/05/19 09:20 Sepsis Event Note - Evaluation Sepsis Screening Result: No Definite Risk - Focused Exam Vital Signs: Vital Signs Temp Pulse Resp BP Pulse Ox 07/05/19 08:52 97.3 F 72 16 107/79 100 Date Exam was Performed: 07/05/19 Time Exam was Performed: 14:15 - Problem List (1) bleeding SNOMED Code(s): 30357530 ICD Code: O72.1 - OTHER IMMEDIATE HEMORRHAGE Status: Acute Current Visit: Yes (2) Abnormal ultrasound of uterus SNOMED Code(s): 47657210431454246, 47028248859378413 ICD Code: R93.5 - ABN FINDINGS ON DX IMAGING OF ABD [employer] 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 Status: Acute Current Visit: Yes Problem List Initiated/Reviewed/Updated: No Orders Last 24hrs: Active Orders 24 hr Category Date Time Status Orthostatic Vital Signs [RC] ASDIRECTED Care 07/05/19 08:55 Active PATIENT RETYPE [BBK] Routine Lab 07/05/19 09:51 Ordered Oxytocin/Lactated Ringers [Pitocin in LR 20 Units/1,000 Med 07/05/19 11:00 Active ML] 20 unit in 1,000 ml IV TITRATE Medication Orders Oxytocin/Lactated Ringer's (Pitocin In Lr 20 Units/1,000 Ml) 20 unit in 1,000 mls @ 125 mls/hr IV TITRATE DALE; Protocol Last Admin: 07/05/19 11:09 Dose: 125 mls/hr Assessment/Plan Comment:: Plan we will take patient to operating room for suction and sharp curettage. - Mortality Measure Prognosis:: Good
[2019-07-05] MEDS ORDERED: Rocuronium 100 MG/10 ML MDV ONE (14:31)
[2019-07-05] MEDS ORDERED: Succinylcholine/Normal Saline 100 MG/5 ML Syringe ONE (14:31)
[2019-07-05] MEDS ORDERED: Propofol 200 MG/20 ML SDV ONE ×2 (14:32→14:48)
[2019-07-05] MEDS ORDERED: fentaNYL 100 MCG/2 ML SDV ONE (14:32)
[2019-07-05] MEDS ORDERED: Ondansetron 4 MG/2 ML SDV ONE (14:36)
[2019-07-05] MEDS ORDERED: Ketorolac 30 MG/ML SDV ONE (14:36)
[2019-07-05] MEDS ORDERED: Dexamethasone 4 MG/ML 5 ML MDV ONE (14:36)
[2019-07-05] MEDS ORDERED: ceFAZolin 2 GM in Premix Bag 1 BAG IV ONE (14:48)
[2019-07-05] MEDS ORDERED: diphenhydrAMINE 50 MG/ML SDV ONE (14:50)
--- NOTE | 2019-07-05 16:02 | PCM.OPNOTE ---
- General Post-Op/Procedure Note Date of Surgery/Procedure: 07/05/19 Operative Procedure(s): Suction and sharp dilatation and curettage Pre Op Diagnosis: hemorrhage, abnormal ultrasound Post-Op Diagnosis: Same Anesthesia Technique: General ET Tube Primary Surgeon: Simone Alfaro Anesthesia Provider: Jerod Card Palliative Care Coordinator: Hugh Henry (PAS) Reason Palliative Care Coordinator Was Necessary: Student education Role of Palliative Care Coordinator: Student education, observation Fluid Replacement, Intraop: 750 Output, Urine Amount: 0 EBL in mLs: 50 Drain/Tube Comments:: None Complications: None Condition: Good Free Text/Narrative:: Patient was transported to operating room #2 and placed under general anesthesia with endotracheal intubation the low dorsal lithotomy position. Prepared and draped in a sterile fashion. SCDs in place and functioning prior surgery. Ancef 2 g given intravenously prior surgery. Timeout performed. Examination under anesthesia revealed a 11-12 weeks size uterus. Utilizing #12 cannula the suction curettage was performed without difficulty followed by gentle curettage and endometrial curettage was sharp curette followed by additional suction curettage. All tissue was sent to pathology for tissue evaluation. Patient was transported postanesthesia care unit in satisfactory condition. No blood transfusions required. I talked with her at 1554 hrs.Brennan questions answered to his voiced satisfaction.
--- NOTE | 2019-07-05 16:06 | PCM.PREANE ---
Preanesthetic Assessment - Procedure Proposed Procedure: D&C - Anesthesia/Transfusion/Family Hx Anesthesia History: Prior Anesthesia Reaction (PONV) Type of Anesthesia Reaction: Excessive Nausea/Vomiting Family History of Anesthesia Reaction: No Transfusion History: No Prior Transfusion(s) Additional History: No history of difficult intubation - Review of Systems General: No Symptoms Pulmonary: No Symptoms Cardiovascular: No Symptoms Gastrointestinal: No Symptoms Neurological: No Symptoms Other: Reports: Easy Bleeding - Physical Assessment NPO Status Date: 07/05/19 (sips of water this morning with medication from ER) NPO Status Time: 08:00 Vital Signs: Last Vital Signs Temp 36.3 C 07/05/19 08:52 Pulse 72 07/05/19 08:52 Resp 16 07/05/19 08:52 BP 107/79 07/05/19 08:52 Pulse Ox 100 07/05/19 08:52 Orthostatic Blood Pressure [ 124/88 Standing] Orthostatic Blood Pressure [ 129/95 Sitting] Orthostatic Blood Pressure [ 112/64 Supine] Height: 5 ft 7 in Weight: 62.596 kg ASA Class: 1E Mental Status: Alert & Oriented x3 Airway Class: Mallampati = 1 Dentition: Reports: Normal Dentition Thyro-Mental Finger Breadths: 3 Mouth Opening Finger Breadths: 3 ROM/Head Extension: Full Lungs: Clear to Auscultation, Normal Respiratory Effort Cardiovascular: Regular Rate, Regular Rhythm - Lab Values: Laboratory Last Values WBC 7.20 K/mm3 (3.98-10.04) 07/05/19 09:20 RBC 4.80 M/mm3 (3.98-5.22) 07/05/19 09:20 Hgb 13.5 gm/dl (11.2-15.7) 07/05/19 09:20 Hct 40.3 % (34.1-44.9) 07/05/19 09:20 MCV 84.0 fl (79.4-94.8) 07/05/19 09:20 MCH 28.1 pg (25.6-32.2) 07/05/19 09:20 MCHC 33.5 g/dl (32.2-35.5) 07/05/19 09:20 RDW Std Deviation 41.1 fL (36.4-46.3) 07/05/19 09:20 Plt Count 323 K/mm3 (182-369) 07/05/19 09:20 MPV 8.9 fl (9.4-12.3) L 07/05/19 09:20 Neut % (Auto) 69.6 % (34.0-71.1) 07/05/19 09:20 Lymph % (Auto) 21.9 % (19.3-51.7) 07/05/19 09:20 [place] % (Auto) 7.6 % (4.7-12.5) 07/05/19 09:20 Eos % (Auto) 0.7 (0.7-5.8) 07/05/19 09:20 Baso % (Auto) 0.1 % (0.1-1.2) 07/05/19:20 Neut # (Auto) 5.00 K/mm3 (1.56-6.13) 07/05/19 09:20 Lymph # (Auto) 1.58 K/mm3 (1.18-3.74) 07/05/19 09:20 [place] # (Auto) 0.55 K/mm3 (0.24-0.36) H 07/05/19 09:20 Eos # (Auto) 0.05 K/mm3 (0.04-0.36) 07/05/19 09:20 Baso # (Auto) 0.01 K/mm3 (0.01-0.08) 07/05/19 09:20 PT 10.7 SECONDS (9.7-12.0) 07/05/19 09:20 INR 0.98 07/05/19 09:20 APTT 29 SECONDS (22-31) 07/05/19 09:20 Sodium 142 mEq/L (136-145) 07/05/19 09:20 Potassium 3.9 mEq/L (3.5-5.1) 07/05/19 09:20 Chloride 105 mEq/L (98-107) 07/05/19 09:20 Carbon Dioxide 27 mEq/L (21-32) 07/05/19 09:20 Anion Gap 13.9 (5-15) 07/05/19 09:20 BUN 9 mg/dL (7-18) 07/05/19 09:20 Creatinine 0.8 mg/dL (0.55-1.02) 07/05/19 09:20 Est Cr Clr Drug Dosing 93.63 mL/min 07/05/19 09:20 Estimated GFR (MDRD) > 60 mL/min (>60) 07/05/19 09:20 BUN/Creatinine Ratio 11.3 (14-18) L 07/05/19 09:20 Glucose 94 mg/dL (74-106) 07/05/19 09:20 Calcium 8.9 mg/dL (8.5-10.1) 07/05/19 09:20 Total Bilirubin 0.6 mg/dL (0.2-1.0) 07/05/19 09:20 AST 17 U/L (15-37) 07/05/19 09:20 ALT 24 U/L (14-59) 07/05/19 09:20 Alkaline Phosphatase 57 U/L (46-116) 07/05/19 09:20 Total Protein 7.5 g/dl (6.4-8.2) 07/05/19 09:20 Albumin 4.0 g/dl (3.4-5.0) 07/05/19 09:20 Globulin 3.5 gm/dL 07/05/19 09:20 Albumin/Globulin Ratio 1.1 (1-2) 07/05/19 09:20 HCG, Qual Negative (NEGATIVE) 07/05/19 09:20 HCG, Quant 4.0 mIU/mL 07/05/19 09:20 Urine Color Yellow (Yellow) 07/05/19 09:10 Urine Appearance Clear (Clear) 07/05/19 09:10 Urine pH 7.0 (5.0-8.0) 07/05/19 09:10 Ur Specific [place] 1.020 (1.005-1.030) 07/05/19 09:10 Urine Protein Negative (Negative) 07/05/19 09:10 Urine Glucose (UA) Negative (Negative) 07/05/19 09:10 Urine Ketones Negative (Negative) 07/05/19 09:10 Urine Occult Blood 3+ (Negative) H 07/05/19 09:10 Urine Nitrite Negative (Negative) 07/05/19 09:10 Urine Bilirubin Negative (Negative) 07/05/19 09:10 Urine Urobilinogen 0.2 (0.2-1.0) 07/05/19 09:10 Ur Leukocyte Esterase Negative (Negative) 07/05/19 09:10 Urine RBC 30-40 /hpf (0-5) H 07/05/19 09:10 Urine WBC 0-5 /hpf (0-5) 07/05/19 09:10 Ur Squamous Epith Cells 5-10 /hpf (0-5) H 07/05/19 09:10 Urine Bacteria Few /hpf (FEW) 07/05/19 09:10 Urine Mucus Few /hpf (FEW) 07/05/19 09:10 Blood Type A POSITIVE 07/05/19 09:20 Gel Antibody Screen Negative 07/05/19 09:20 - Allergies Allergies/Adverse Reactions: Allergies Allergy/AdvReac Type Severity Reaction Status Date / Time No Known Allergies Allergy Verified 07/05/19 08:56 - Blood Blood Available: No - Anesthesia Plan Pre-Op Medication Ordered: None - Acknowledgements Anesthesia Type Planned: General Anesthesia Pt an Appropriate Candidate for the Planned Anesthesia: Yes Alternatives and Risks of Anesthesia Discussed w Pt/Guardian: Yes Pt/Guardian Understands and Agrees with Anesthesia Plan: Yes PreAnesthesia Questionnaire UTILITY PERSON History: Reports: Endometriosis, , Spontaneous (x 4), Other (See Below) (G7 T3 L3) Other OB/BYN History: 2 Para 4 - Past Surgical History Female Surgical History: Reports: Section (x 1), Endometrial Ablation Dermatological Surgical History: Reports: Other (See Below) (Noncancerous tumor removed off left shoulder at 10 years old) - SUBSTANCE USE Smoking Status *Q: Never Smoker - HOME MEDS Home Medications: Home Meds Vit Calc,Iron,Folic [ Vitamins] 1 tab PO DAILY 05/21/16 [ History] L.acidoph,Paracasei, B.lactis [Probiotic] 1 cap PO DAILY 07/05/19 [History] Misoprostol [Cytotec] 200 mcg PO Q6H #30 tablet 07/05/19 [Rx] Ondansetron [Zofran ODT] 4 mg PO Q6H PRN #20 tab.dis 07/05/19 [Rx] Ubidecarenone [Co Q-10] 10 mg PO DAILY 07/05/19 [History] - CURRENT (IN HOUSE) MEDS Current Meds: Current Medications Oxytocin/Lactated Ringer's (Pitocin In Lr 20 Units/1,000 Ml) 20 unit in 1,000 mls @ 125 mls/hr IV TITRATE DALE; Protocol Last Admin: 07/05/19 11:09 Dose: 125 mls/hr Discontinued Medications Dexamethasone (Dexamethasone) Confirm Administered Dose 20 mg .ROUTE .STK-MED ONE Stop: 07/05/19 14:37 Diphenhydramine HCl (Benadryl) Confirm Administered Dose 50 mg .ROUTE .[facility]-MED ONE Stop: 07/05/19 14:51 Fentanyl (Sublimaze) Confirm Administered Dose 100 mcg .[address]TE .[facility]-MED ONE Stop: 07/05/19 14:33 Sodium Chloride (Normal Saline) 1,000 mls @ 150 mls/hr IV ASDIRECTED DALE Last Admin: 07/05/19 09:27 Dose: 150 mls/hr Lactated Ringer's (Ringers, Lactated) 1,000 mls @ 999 mls/hr IV .BOLUS DALE Cefazolin Sodium/Dextrose 2 gm (/ Premix) 50 mls @ 100 mls/hr IV ONETIME ONE Stop: 07/05/19 15:17 Last Admin: 07/05/19 15:10 Dose: 100 mls/hr Ketorolac Tromethamine (Toradol) Confirm Administered Dose 30 mg .ROUTE .[facility]- MED ONE Stop: 07/05/19 14:37 Lidocaine HCl (Xylocaine-Mpf 1%) Confirm Administered Dose 5 ml .ROUTE .[facility]-MED ONE Stop: 07/05/19 14:32 Metoclopramide HCl (Reglan) 7.5 mg IVPUSH ONETIME ONE Stop: 07/05/19 11:47 Last Admin: 07/05/19 11:52 Dose: 7.5 mg Misoprostol (Cytotec) 800 mcg PO ONETIME ONE Stop: 07/05/19 10:53 Last Admin: 07/05/19 11:07 Dose: 800 mcg Ondansetron HCl (Zofran) Confirm Administered Dose 4 mg .ROUTE .[facility]-MED ONE Stop: 07/05/19 14:37 Propofol (Diprivan 20 Ml) Confirm Administered Dose 200 mg .ROUTE .ST-MED ONE Stop: 07/05/19 14:33 Propofol (Diprivan 20 Ml) Confirm Administered Dose 400 mg .ROUTE .[facility]-MED ONE Stop: 07/05/19 14:49 Rocuronium [place] (Zemuron) Confirm Administered Dose 100 mg .ROUTE .STK-MED ONE Stop: 07/05/19 14:32 Succinylcholine Chloride (Succinylcholine In Ns Pf) Confirm Administered Dose 100 mg .ROUTE .STK-MED ONE Stop: 07/05/19 14:32
--- NOTE | 2019-07-05 16:23 | PCM.POSTAN ---
POST ANESTHESIA ASSESSMENT - MENTAL STATUS Mental Status: Alert, Oriented - VITAL SIGNS Vital Signs: Last Vital Signs Temp 37.1 C 07/05/19 15:58 Pulse 72 07/05/19 08:52 Resp 20 07/05/19 16:10 BP 117/72 07/05/19 16:10 Pulse Ox 100 07/05/19 16:10 Orthostatic Blood Pressure [ 124/88 Standing] Orthostatic Blood Pressure [ 129/95 Sitting] Orthostatic Blood Pressure [ 112/64 Supine] - RESPIRATORY Respiratory Status: Respiratory Rate WNL, Airway Patent - CARDIOVASCULAR CV Status: Pulse Rate WNL, Blood Pressure Stable - GASTROINTESTINAL GI Status: No Symptoms - PAIN Pain Score: 0 - POST OP HYDRATION Hydration Status: Adequate & Stable - OBSERVATIONS Free Text/Narrative:: Routine transfer to PACU with handoff to RN. VSS, SV, SANDS, FAC, CTAB. No concerns at this time. No PONV.
--- NOTE | 2019-07-05 16:25 | PCM48HPAN ---
Post Anesthesia Note - EVALUATION WITHIN 48HRS OF ANESTHETIC Vital Signs in Normal Range: Yes Patient Participated in Evaluation: Yes Respiratory Function Stable: Yes Airway Patent: Yes Cardiovascular Function Stable: Yes Hydration Status Stable: Yes Pain Control Satisfactory: Yes Nausea and Vomiting Control Satisfactory: Yes Mental Status Recovered: Yes Vital Signs: Last Vital Signs Temp 37.1 C 07/05/19 15:58 Pulse 72 07/05/19 08:52 Resp 18 07/05/19 16:20 BP 113/69 07/05/19 16:20 Pulse Ox 98 07/05/19 16:20 Orthostatic Blood Pressure [ 124/88 Standing] Orthostatic Blood Pressure [ 129/95 Sitting] Orthostatic Blood Pressure [ 112/64 Supine] - COMMENTS/OBSERVATIONS Free Text/Narrative:: No concerns. Patient may be discharged when ready.
[2019-07-05 17:15] VITALS: BP 108/47
== END 2019-07-05 17:10 | disposition home or self-care (01) ==
LOC: JD.ED 08:43 → JD.SDS 14:38
PROVIDERS: ATTEND Obstetrics & Gynecology
DX: O03.1 Delayed or excessive hemorrhage following incomplete spontaneous abortion (principal)
CPT/HCPCS: 36415; 59160; 76817; 76857; 80053; 81001; 84702; 84703; 85025; 85610; 85730; 86850; 86900; 86901; A9270; J0330; J0690; J1100; J1200; J1885; J2001; J2405; J2590; J2704; J2765; J3010; J7030; 00940; 99285

== ENCOUNTER 2023-05-26 12:14 | Day surgery (SDC) | payer OTHER ==
[2023-05-26] MEDS ORDERED: Sodium Chloride 0.9% 10 ML Syringe FLUSH PRN (12:28)
[2023-05-26 12:44] LABS: BASOPHILS PERCENT AUTO 0.3 % (0.0-1.0); EOSINOPHILS PERCENT AUTO 0.4 % (0.0-6.0); HEMATOCRIT 40.7 % (37.0-47.0); HEMOGLOBIN 13.8 gm/dl (12.0-16.0); IMMATURE GRAN ABSOLUTE AUTO 0.03 K/mm3 (0.00-0.05); IMMATURE GRAN PERCENT AUTO 0.3 % (0.0-0.4); LYMPHOCYTES ABSOLUTE AUTO 1.7 K/mm3 (1.0-4.8); LYMPHOCYTES PERCENT AUTO 16.2 % (24.0-44.0); MEAN CORPUSCULAR HEMOGLOBIN 28.2 pg (28.0-32.0); MEAN CORPUSCULAR HGB CONC 33.9 g/dl (32.0-36.0); MEAN CORPUSCULAR VOLUME 83.1 fl (83.0-99.0); MEAN PLATELET VOLUME 9.1 fl (9.4-12.3); MONOCYTES ABSOLUTE AUTO 0.6 K/mm3 (0.0-0.8); NEUTROPHILS ABSOLUTE AUTO 7.9 K/mm3 (1.8-7.7); NEUTROPHILS PERCENT AUTO 76.8 % (41.0-71.0); PLATELET COUNT,PLT 236 K/mm3 (150-400); WHITE BLOOD CELL COUNT,WBC 10.21 K/mm3 (3.9-11.3)
[2023-05-26 13:09] LABS: ALBUMIN 3.9 g/dl (3.4-5.0); ANION GAP 14.8 (5-15); BILIRUBIN TOTAL 0.4 mg/dL (0.2-1.0); CALCIUM 9.1 mg/dL (8.5-10.1); CREATININE 0.6 mg/dL (0.55-1.02); EST CRCL DRUG DOSING (CG) 118.4 mL/min; POTASSIUM,K 3.8 mEq/L (3.5-5.1); PROTEIN TOTAL,TP 7.7 g/dl (6.4-8.2)
[2023-05-26 14:30] LABS: APPEARANCE,URINE TURBID (Clear); BILIRUBIN,URINE NEGATIVE (Negative); COLOR,URINE RED (Yellow); GLUCOSE,URINE NEGATIVE (Negative); KETONES,URINE 1+ (Negative); LEUKOCYTE ESTERASE,URINE 1+ (Negative); NITRITE,URINE NEGATIVE (Negative); OCCULT BLOOD,URINE 3+ (Negative); PH,URINE 7.5 (5.0-8.0); PROTEIN,URINE 3+ (Negative); UROBILINOGEN,URINE 0.2 (0.2-1.0)
[2023-05-26 14:48] LABS: RBC,URINE TOO NUMEROUS TO CNT /hpf (0-5)
[2023-05-26 14:49] LABS: BACTERIA,URINE FEW /hpf (FEW); MUCUS,URINE NOT SEEN /hpf (FEW); SQUAMOUS EPITHELIAL CELLS,UR 0-5 /hpf (0-5)
[2023-05-26] MEDS ORDERED: HYDROmorphone 0.5 MG/0.5 ML Syringe IVPUSH ONE (15:05)
[2023-05-26 15:33] VITALS: PULSE 80
[2023-05-26] MEDS ORDERED: Misoprostol 100 MCG Tab PO ONE (15:52)
[2023-05-26] MEDS ORDERED: Lactated Ringers 1,000 ML ONE (16:46)
[2023-05-26] MEDS ORDERED: Methylergonovine 0.2 MG/1 ML Amp ONE (17:26)
[2023-05-26] MEDS ORDERED: fentaNYL 100 MCG/2 ML SDV IVPUSH PRN (17:43)
[2023-05-26] MEDS ORDERED: HYDROmorphone 0.5 MG/0.5 ML Syringe IVPUSH PRN (17:43)
[2023-05-26] MEDS ORDERED: Ondansetron 4 MG/2 ML SDV IVPUSH PRN (17:43)
[2023-05-26] MEDS ORDERED: Ibuprofen 600 MG Tab PO PRN (18:00)
[2023-05-26 18:46] VITALS: BP 118/64
== END 2023-05-26 18:40 | disposition home or self-care (01) ==
LOC: JD.ED 12:14 → JD.SDS 16:40
PROVIDERS: ATTEND Obstetrics & Gynecology
DX: O03.4 Incomplete spontaneous abortion without complication (principal)
CPT/HCPCS: 36415; 59812; 76817; 80053; 81001; 84702; 85025; 86850; 86900; 86901; 87086; 96374; 99285; J1170; J2210; J3490; 01965; 99140

== ENCOUNTER 2023-07-13 16:21 | Day surgery (SDC) | payer BC, OTHER ==
[2023-07-13] MEDS ORDERED: Doxycycline Monohydrate 100 MG Cap PO STA (16:52)
[2023-07-13] MEDS ORDERED: Lactated Ringers 1,000 ML IV STA (16:52)
[2023-07-13] MEDS ORDERED: Lactated Ringers 1,000 ML ONE (16:54)
[2023-07-13] MEDS ORDERED: Doxycycline Monohydrate 100 MG Cap ONE (16:54)
[2023-07-13] MEDS ORDERED: Sodium Chloride 0.9% 10 ML Syringe FLUSH PRN (17:13)
[2023-07-13] MEDS ORDERED: Methylergonovine 0.2 MG/1 ML Amp ONE (17:23)
[2023-07-13] MEDS ORDERED: Lidocaine 1% 6 ML ONE (17:55)
[2023-07-13] MEDS ORDERED: fentaNYL 250 MCG/5 ML SDV ONE (17:56)
[2023-07-13] MEDS ORDERED: Succinylcholine 200 MG/10 ML MDV ONE (17:56)
[2023-07-13] MEDS ORDERED: Midazolam 1 MG/ML 2 ML SDV ONE (17:56)
[2023-07-13] MEDS ORDERED: Propofol 200 MG/20 ML SDV ONE (17:57)
[2023-07-13] MEDS ORDERED: Metoclopramide 10 MG/2 ML SDV ONE (18:12)
[2023-07-13] MEDS ORDERED: Ketorolac 30 MG/ML SDV ONE (18:12)
[2023-07-13] MEDS ORDERED: Ondansetron 4 MG/2 ML SDV ONE (18:12)
[2023-07-13] MEDS ORDERED: Dexamethasone 4 MG/ML 5 ML MDV ONE (18:26)
[2023-07-13] MEDS ORDERED: HYDROmorphone 0.5 MG/0.5 ML Syringe IVPUSH PRN (18:44)
[2023-07-13] MEDS ORDERED: fentaNYL 100 MCG/2 ML SDV IVPUSH PRN (18:44)
[2023-07-13 20:08] VITALS: BP 102/65; PULSE 73
== END 2023-07-13 20:00 | disposition home or self-care (01) ==
LOC: JD.ED 16:21 → JD.SDS 17:17
PROVIDERS: ATTEND Obstetrics & Gynecology
DX: O03.4 Incomplete spontaneous abortion without complication (principal); Z79.899 Other long term (current) drug therapy
CPT/HCPCS: A9270-GY; J0330; J1100; J1885; J2210; J2250; J2405; J2704; J2765; J3010; J3490; J7120